=== PATIENT | male | born 1970 | race Two or more races ===

== ENCOUNTER 2024-04-22 21:20 | Emergency (ER) | payer OTHER ==
[~2024-04-22] VITALS: Ht 182.9 cm; Wt 113.4 kg
[2024-04-22] MEDS ORDERED: LIDOCAINE HCL 1% 10ML VIAL ONE (22:18)
[2024-04-22] MEDS ORDERED: KETOROLAC TROMETHAMINE 60 MG VIAL IM ONE ×2 (22:26→22:30)
== END 2024-04-22 23:34 | disposition home or self-care (01) ==
LOC: ER 21:22
DX: S01.81XA Laceration without foreign body of other part of head, initial encounter (principal); Y93.59 Activity, other involving other sports and athletics played individually; Y93.89 Activity, other specified; Y92.312 Tennis court as the place of occurrence of the external cause